=== PATIENT | male | born 1965 | race Caucasian/White ===

== ENCOUNTER 2017-01-26 08:27 | Emergency (ER) | payer OTHER, BC ==
[~2017-01-26] VITALS: Ht 175.3 cm; Wt 110.7 kg
[~2017-01-26 08:27] MED LIST: CLC150 PO; ESCI1TAB10 PO; HYOS1TAB PO; LRT5 PO
[2017-01-26 08:29] VITALS: TEMP 36.7; Ht 175.3 cm; Wt 110.7 kg
[2017-01-26] MEDS ORDERED: CLINDAMYCIN IV 900 MG in DEXTROSE 5% 100ML 100 ML IV STA (08:42)
[2017-01-26] MEDS ORDERED: SULFAMETHOXAZOLE/TRIMETHOPRIM DS 800/160MG TAB PO STA (08:42)
--- NOTE | 2017-01-26 08:58 | EMERGENCY ROOM VISIT NOTE ---
History Report prepared by Fernanda: May Martinez Under the Supervision of: Dr. Kyleigh Salas M.D. First contact with patient: 08:39 Chief Complaint: INFECTION Stated Complaint: INFECTION LEFT ARM-WORK RELATED INJURY Nursing Triage Summary: pt reports he got splinter on thursday in left hand over weekend became swollen and red ,has red line up left arm History of Present Illness The patient is a 51 year old male who presents to the Emergency Room with complaints of a worsening infection that started 3 days ago. The patient states that he got a splinter in his left pointer finger at work 3 days ago which he thought he removed. However, over the last 2 days his left hand became edematous and erythematous. The erythema also tracks up his left arm. He denies fevers or chills. The patient has Type 2 diabetes and he takes metformin twice a day. Source of History: patient Onset: 3 days ago Position: arm (left), hand (left) Quality: other (infection - left hand edema, left hand erythema, erythema tracking up left arm) Timing: worsening Associated Symptoms: No fevers, No chills Review of Systems See HPI for pertinent positives & negatives. A total of 10 systems reviewed and were otherwise negative. Past Medical & Surgical Medical Problems: (1) Diabetes mellitus, type 2 (2) Hypertension Family History Diabetes mellitus Hypertension Lung disease Social History Smoking Status: Never Smoker Smokeless Tobacco Use: No Alcohol Use: occasionally Drug Use: none Marital Status: Housing Status: lives alone Occupation Status: employed Current/Historical Medications Scheduled Alfuzosin HCl (Alfuzosin HCl ER), 10 MG PO DAILY Allopurinol (Allopurinol), 300 MG PO DAILY Atenolol/Chlorthalidone (Tenoretic 50 Mg/25 Mg), 1 TAB PO DAILY Atorvastatin (Lipitor), 20 MG PO DAILY Citalopram Hydrobromide (Celexa), 80 MG PO DAILY Clindamycin Hcl (Cleocin), 150 MG PO TID Clindamycin Hcl (Cleocin), 1 CAP PO TID Glimepiride (Glimepiride), 4 MG PO DAILY Losartan Potassium (Losartan Potassium), 50 MG PO DAILY Metformin Hcl (Glucophage), 1,000 MG PO BID Omeprazole (Prilosec), 20 MG PO DAILY Pioglitazone Hcl (Actos), 30 MG PO DAILY Sulfa/Trimethoprim (Bactrim Ds 800MG/160MG), 1 TAB PO BID Allergies Coded Allergies: Cephalosporins (Unverified Allergy, Mild, HIVES, 08/17/09) Physical Exam Vital Signs Date Time Temp Pulse Resp B/P (MAP) Pulse Ox O2 Delivery O2 Flow Rate FiO2 01/26/17 10:45 62 16 107/70 98 Room Air 01/26/17 08:29 36.7 68 18 131/81 96 Room Air Physical Exam Vital signs reviewed. General: Well-appearing male, in no significant distress. HEENT: No scleral icterus, PERRLA, neck supple. Atraumatic. Cardiovascular: Regular rate and rhythm, no extra sounds. Pulmonary: Clear to auscultation bilaterally, normal work of breathing. Abdomen: Soft, nontender, nondistended, positive bowel sounds. Musculoskeletal: Index finger of the left hand has a small skin deficit without drainage, erythema and mild swelling up the dorsum of the left hand with lymphangitic streaking to mid-bicep. Neurologic: Patient awake alert and oriented x 3, full strength in all 4 extremities. Cranial nerves 2 through 12 grossly intact. Skin: Warm, dry, no rash Medical Decision & Procedures Laboratory Results 01/26/17 09:00 Red Blood Count 5.38, Mean Corpuscular Volume 79.9, Mean Corpuscular Hemoglobin 25.5, Mean Corpuscular Hemoglobin Concent 31.9, Mean Platelet Volume 10.1, Neutrophils (%) (Auto) 76.4, Lymphocytes (%) (Auto) 15.2, Monocytes (%) (Auto) 5.6, Eosinophils (%) (Auto) 2.2, Basophils (%) (Auto) 0.2, Neutrophils # (Auto) 6.91, Lymphocytes # (Auto) 1.38, Monocytes # (Auto) 0.51, Eosinophils # (Auto) 0.20, Basophils # (Auto) 0.02 01/26/17 09:00 Test 01/26/17 09:00 White Blood Count 9.06 K/uL (4.8-10.8) Red Blood Count 5.38 M/uL (4.7-6.1) Hemoglobin 13.7 g/dL (14.0-18.0) Hematocrit 43.0 % (42-52) Mean Corpuscular Volume 79.9 fL (80-100) Mean Corpuscular Hemoglobin 25.5 pg (25-34) Mean Corpuscular Hemoglobin Concent 31.9 g/dl (32-36) Platelet Count 157 K/uL (130-400) Mean Platelet Volume 10.1 fL (7.4-10.4) Neutrophils (%) (Auto) 76.4 % Lymphocytes (%) (Auto) 15.2 % Monocytes (%) (Auto) 5.6 % Eosinophils (%) (Auto) 2.2 % Basophils (%) (Auto) 0.2 % Neutrophils # (Auto) 6.91 K/uL (1.4-6.5) Lymphocytes # (Auto) 1.38 K/uL (1.2-3.4) Monocytes # (Auto) 0.51 K/uL (0.11-0.59) Eosinophils # (Auto) 0.20 K/uL (0-0.5) Basophils # (Auto) 0.02 K/uL (0-0.2) RDW Standard Deviation 43.0 fL (36.4-46.3) RDW Coefficient of Variation 14.8 % (11.5-14.5) Immature Granulocyte % (Auto) 0.4 % Immature Granulocyte # (Auto) 0.04 K/uL (0.00-0.02) Anion Gap 7.0 mmol/L (3-11) Est Creatinine Clear Calc Drug Dose 96.4 ml/min Estimated GFR () 89.0 Estimated GFR (Non- 76.8 BUN/Creatinine Ratio 15.7 (10-20) Calcium Level 9.6 mg/dl (8.5-10.1) Laboratory results per my review. Medications Administered Medications (Trade) Dose Ordered Sig/Jennifer Route Start Time Stop Time Status Last Admin Dose Admin Clindamycin Phosphate 900 mg/ Dextrose 106 ml @ 100 mls/hr ONE STAT IV 01/26/17 08:42 01/26/17 09:45 DC 01/26/17 09:34 100 MLS/HR Trimethoprim/ Sulfamethoxazole (Septra Ds 800/ 160MG Tab) 1 tab NOW STAT PO 01/26/17 08:42 01/26/17 08:47 DC 01/26/17 09:35 1 TAB ED Course 0841: Past medical records reviewed. The patient was evaluated in room B12. A complete history and physical examination was performed. 0842: Ordered Trimethoprim/Sulfamethoxazole 1 tab PO, Clindamycin Phosphate 900 mg/Dextrose 106 ml @ 100 mls/hr IV 1031: Upon reevaluation, the patient appeared to have improvement of his symptoms. I discussed findings with him. He verbalized agreement of the treatment plan. He was discharged home. Medical Decision Differential diagnoses includes cellulitis, abscess, MRSA infection, DVT, necrotizing fasciitis, dermatitis, drug eruption. Medication Reconciliation: I attest that I have personally reviewed the patient' s current medication list. Blood Pressure Screening: Patient was found to have normal blood pressure on screening and does not require follow-up. This patient was evaluated and appeared to be in no significant distress. Patient has a left upper extremity cellulitis starting at the tip of the index finger secondary to an injury. It does streak up to the mid bicep. Patient is a cephalosporin allergy. He was given IV clindamycin and oral Bactrim. He was discharged on clindamycin 450 mg 3 times daily for 7 days and Bactrim DS 1 tablet twice daily for 7 days. A follow-up appointment has been arranged for the patient this week with his PCP. He will return to the ER for worsening of symptoms, fevers or any medical concerns. Impression Primary Impression: Cellulitis of left upper extremity Scribe Attestation The scribe's documentation has been prepared under my direction and personally reviewed by me in its entirety. I confirm that the note above accurately reflects all work, treatment, procedures, and medical decision making performed by me. Departure Information Dispostion Home / Self-Care Prescriptions Sulfa/Trimethoprim (Bactrim Ds 800MG/160MG) Tab 1 TAB PO BID, #14 TAB Prov: Kyleigh Salas M.D. 01/26/17 Clindamycin Hcl (CLEOCIN) 300 Mg Cap 1 CAP PO TID for 7 Days, #21 CAP Prov: Kyleigh Salas M.D. 01/26/17 Clindamycin Hcl (CLEOCIN) 150 Mg Cap 150 MG PO TID for 7 Days, #21 CAP Prov: Kyleigh Salas M.D. 01/26/17 Referrals Bladimir Clark M.D. (PCP) Forms HOME CARE DOCUMENTATION FORM, IMPORTANT VISIT INFORMATION, WORK / SCHOOL INSTRUCTIONS Patient Instructions My [facility] Additional Instructions Diagnosis: Left upper extremity cellulitis Clindamycin 450 mg 3 times daily for 7 days. Eat live active culture yogurt twice daily while on this medication. Bactrim DS 1 tab twice daily for 7 days. Follow up tomorrow with Luzma Medina PA-C at Dr Dove's office. If symptoms worsen, please return to the ED SATYA.
[2017-01-26 09:49] LABS: BASO % 0.2 %; BASO ABS # 0.02 K/uL (0-0.2); COMPLETE YES; EOS % 2.2 %; IG% 0.4 %; LYMPH % 15.2 %; LYMPH ABS # 1.38 K/uL (1.2-3.4); MEAN CELL VOLUME 79.9 fL (80-100); MEAN CORPUSCULAR HEMOGLOBIN 25.5 pg (25-34); MEAN CORPUSCULAR HGB CONC 31.9 g/dl (32-36); MEAN PLATELET VOLUME 10.1 fL (7.4-10.4); MONO % 5.6 %; NEUT % 76.4 %; PLATELET COUNT 157 K/uL (130-400); RED BLOOD COUNT 5.38 M/uL (4.7-6.1); WHITE BLOOD COUNT 9.06 K/uL (4.8-10.8)
[2017-01-26] MEDS ORDERED: PRLSR20 PO (10:09)
[2017-01-26] MEDS ORDERED: METF-384 PO (10:09)
[2017-01-26] MEDS ORDERED: ALL300 PO (10:09)
[2017-01-26] MEDS ORDERED: ATOR-22 PO (10:09)
[2017-01-26] MEDS ORDERED: ATEN-171 PO (10:09)
[2017-01-26] MEDS ORDERED: GLIM4TAB2 PO (10:09)
[2017-01-26] MEDS ORDERED: URX/10 PO (10:09)
[2017-01-26] MEDS ORDERED: CZR50 PO (10:09)
[2017-01-26] MEDS ORDERED: CITA40TA12 PO (10:09)
[2017-01-26] MEDS ORDERED: ACT/30 PO (10:09)
[2017-01-26 10:12] LABS: BUN/CREATININE RATIO 15.7 (10-20); CALCIUM 9.6 mg/dl (8.5-10.1); CREATININE 1.1 mg/dl (0.60-1.40); POTASSIUM 3.3 mmol/L (3.5-5.1)
[2017-01-26 10:45] VITALS: BP 107/70; PULSE 62; O2SAT 98
[2017-01-26] MEDS ORDERED: CLIN150C PO (10:50)
[2017-01-26] MEDS ORDERED: SULF800T23 PO (10:50)
[2017-01-26] MEDS ORDERED: CLIN300C2 PO (10:50)
== END 2017-01-26 11:23 | disposition home or self-care (01) ==
LOC: C.EDB 08:30
DX: L03.114 Cellulitis of left upper limb (principal); E11.9 Type 2 diabetes mellitus without complications; I10 Essential (primary) hypertension; Z83.3 Family history of diabetes mellitus; Z82.49 Family history of ischemic heart disease and other diseases of the circulatory system

== ENCOUNTER 2018-02-27 15:54 | Emergency (ER) | payer BC, OTHER ==
[~2018-02-27] VITALS: Ht 176.5 cm; Wt 112.0 kg
[~2018-02-27 15:54] MED LIST changes: +ACT/30 PO; +ALL300 PO; +ATEN-171 PO; +ATOR-22 PO; +CITA40TA12 PO; -CLC150 PO; +CZR50 PO; -ESCI1TAB10 PO; +GLIM4TAB2 PO; -HYOS1TAB PO; -LRT5 PO; +METF-384 PO; +PRLSR20 PO; +URX/10 PO
[2018-02-27 16:04] VITALS: TEMP 36.6; Ht 176.5 cm; Wt 112.0 kg
[2018-02-27] MEDS ORDERED: AMOXICILLIN/CLAVULANATE TAB 875 MG TAB PO STA (16:44)
[2018-02-27] MEDS ORDERED: ALBUAER INH (16:48)
[2018-02-27] MEDS ORDERED: ASPI81TA28 PO (16:48)
--- NOTE | 2018-02-27 16:48 | EMERGENCY ROOM VISIT NOTE ---
ED Visit Note First contact with patient: 16:12 CHIEF COMPLAINT: Right knee infection, referred by nurse HISTORY OF PRESENT ILLNESS: This 52-year-old male patient presents to the emergency department, ambulatory, complaining of bacteria growing in the bursa of the right knee. The patient states the bursa has been present for approximately 6-8 weeks. He has seen his primary care provider as well as orthopedics regarding the swelling and infection of the knee. The patient reports being on a course of amoxicillin which did help with the swelling and pain, however did not completely take the fluid away. He had an ultrasound performed as well as drainage of the bursa yesterday and fluid was sent to the lab for culture. The patient reports he received a phone call today from the nurse at the orthopedics office to advised him that he needs to come to the emergency department for evaluation and "heavy antibiotics and likely admission due to the serious infection". The patient states the swelling and pain have been stable for the past 6-8 weeks. He denies any fever, chills, nausea, vomiting, body aches. He denies any redness or purulent drainage from the knee. He denies any decreased mobility. All symptoms are exactly as they have been for the past 6 weeks. REVIEW OF SYSTEMS: A 10 system review of systems was performed with positives and pertinent negatives listed in the history of present illness. All other systems were reviewed and are negative. ALLERGIES: Cephalosporins PMH: Anxiety SOCIAL HISTORY: The patient lives locally with family. He denies drug, alcohol, tobacco use. PHYSICAL EXAM: VITALS: Vitals are noted on the nurse's note and reviewed by myself. Vital signs stable. GENERAL: This is a 52-year-old white male, in no acute distress, nondiaphoretic , well-developed well-nourished. HEART: Regular rate and rhythm. No murmurs, gallops, rubs. LUNGS: CTA bilaterally. No wheezes, rhonchi, rales. MUSCULOSKELETAL: Infrapatellar bursitis noted on the right. This is fluctuant in nature. There is no erythema or active drainage at this time. There is no joint edema. There is full range of motion of the right lower extremity without tenderness. Mild tenderness to palpation of the bursa, but no other joint tenderness. No erythema extending into the leg. No lymphangitic streaking. SKIN: Infrapatellar bursitis as noted previously. Otherwise, no diaphoresis, erythema, or edema. EMERGENCY DEPARTMENT COURSE: The patient was seen and evaluated as above. The joint does not appear septic in nature. The culture report was reviewed. This was a preliminary culture which grew gram-positive cocci in chains. This was ordered by Dr. Samayoa. There is no final report or sensitivity noted. The patient certainly does not have any symptoms of a septic joint. He is not systemically ill, and symptoms have been completely stable for the past 6-8 weeks. I discussed with the patient that I feel we can start him preliminarily on Augmentin with close follow-up by the orthopedic surgeon on Thursday when the final report is available. The patient verbalized agreement and understanding. All questions answered to patient's satisfaction prior to discharge. Discharge instructions reviewed, patient was discharged home in good condition. I attest that I have personally reviewed the patient's current medication list. Blood Pressure Screening: Patient was found to have a slightly elevated blood pressure due to circumstances. I do not believe that the patient requires hypertension monitoring. Etiologies such as soft tissue injury, fracture, dislocation, neurovascular compromise, compartment syndrome, septic joint, bursitis, as well as others were entertained. DIAGNOSIS: Infrapatellar bursitis The chart was completed utilizing [employer] Speech voice recognition software. Grammatical errors, random word insertions, pronoun errors, and incomplete sentences are an occasional consequence of this system due to software limitations, ambient noise, and hardware issues. Any formal questions or concerns about the content, text, or information contained within the body of this dictation should be directly addressed to the provider for clarification. Problem List Medical Problems: (1) Diabetes mellitus, type 2 Status: Chronic (2) Hypertension Status: Chronic Current/Historical Medications Scheduled Alfuzosin HCl (Alfuzosin HCl ER), 10 MG PO DAILY Allopurinol (Allopurinol), 300 MG PO DAILY Amoxicillin & Pot Clavulanate (Augmentin 875-125 mg), 1 TAB PO BID Aspirin (Aspirin Ec), 81 MG PO DAILY Atenolol/Chlorthalidone (Tenoretic 50 Mg/25 Mg), 1 TAB PO DAILY Atorvastatin (Lipitor), 20 MG PO DAILY Citalopram Hydrobromide (Celexa), 40 MG PO BID Glimepiride (Glimepiride), 4 MG PO DAILY Losartan Potassium (Losartan Potassium), 50 MG PO DAILY Metformin Hcl (Glucophage), 1,000 MG PO BID Omeprazole (Prilosec), 20 MG PO DAILY Pioglitazone Hcl (Actos), 30 MG PO DAILY Scheduled PRN Albuterol Sulfate (Proventil Hfa), 2 PUFF INH Q4H PRN for SOB/Wheezing Allergies Coded Allergies: Cephalosporins (Verified Allergy, Mild, HIVES, 02/27/18) Vital Signs Date Time Temp Pulse Resp B/P (MAP) Pulse Ox O2 Delivery O2 Flow Rate FiO2 02/27/18 17:01 76 20 145/87 95 02/27/18 16:04 36.6 80 20 157/89 95 Room Air Medications Administered Medications (Trade) Dose Ordered Sig/Jennifer Route Start Time Stop Time Status Last Admin Dose Admin Amoxicillin/ Clavulanate Potassium (Augmentin Tab) 875 mg ONE STAT PO 02/27/18 16:44 02/27/18 16:46 DC 02/27/18 16:53 875 MG Departure Information Impression Primary Impression: Infrapatellar bursitis of right knee Dispostion Home / Self-Care Condition GOOD Prescriptions Amoxicillin & Pot Clavulanate (Augmentin 875-125 mg) 1 Tab Tab 1 TAB PO BID for 10 Days, #20 TAB Prov: Heather Urias PA-C 02/27/18 Referrals Bladimir Clark M.D. (PCP) Patient Instructions ED Bursitis, [facility] Additional Instructions You were seen in the emergency department today for antibiotics for the infrapatellar bursitis which was drained by orthopedic surgeon yesterday. As discussed, only the preliminary culture report is back. Based on this report, he will be started on Augmentin. As discussed, you will need to follow-up with orthopedics, as the final report will not be available for another 24-48 hours. This final report should have sensitivities to determine the most appropriate antibiotics to continue. Amoxicillin Clavulanate (Augmentin) 875mg: Take one pill twice daily for 10 days for your infection. All antibiotics can cause diarrhea. If this occurs and you feel worse or it does not resolve in 1-2 days follow up with your doctor or return to the Emergency Department as this could be signs of serious underlying problems. Any medication can cause an allergic reaction, stop the pills immediately and return to the ER for rash, hives, breathing difficulties, or swelling. Follow-up with your orthopedic surgeon on Thursday for re-evaluation and to discuss the final culture report. Return immediately to the emergency department for any significantly worsening swelling, redness, puslike drainage, fever, systemic symptoms such as chills or body aches, nausea, vomiting, or other concerning symptoms.
[2018-02-27] MEDS ORDERED: AMOX875T PO (16:49)
[2018-02-27 17:01] VITALS: BP 145/87; PULSE 76; O2SAT 95
== END 2018-02-27 17:02 | disposition home or self-care (01) ==
LOC: C.EDB 15:56 → C.EDC 17:02
DX: M70.51 Other bursitis of knee, right knee (principal); F41.9 Anxiety disorder, unspecified; E11.9 Type 2 diabetes mellitus without complications; I10 Essential (primary) hypertension; Z79.82 Long term (current) use of aspirin; Z79.899 Other long term (current) drug therapy; Z88.8 Allergy status to other drugs, medicaments and biological substances